=== PATIENT | male | born 1970 | race American Indian/Alaskan Native ===

== ENCOUNTER → 2017-05-13 | Outpatient (CLI) | payer MEDICAID | LOC: CIMAGING 16:10 | PROVIDERS: ATTEND Family Medicine | DX: M25.561 Pain in right knee (principal); E11.9 Type 2 diabetes mellitus without complications | CPT/HCPCS: 73560-PO ==

== ENCOUNTER → 2018-10-04 | Outpatient (CLI) | payer MEDICAID | LOC: CLAB 16:34 | PROVIDERS: ATTEND Family Medicine | DX: M25.761 Osteophyte, right knee (principal) | CPT/HCPCS: 73562-PO ==

== ENCOUNTER → 2018-12-20 | Outpatient (CLI) | payer MEDICAID | LOC: FIMAGING 18:48 | PROVIDERS: ATTEND Family Medicine | DX: M25.561 Pain in right knee (principal); M23.91 Unspecified internal derangement of right knee ==